=== PATIENT | male | born 1975 | race Two or more races ===

== ENCOUNTER 2018-06-28 23:32 | Emergency (ER) | payer OTHER ==
[~2018-06-28] VITALS: Ht 170.2 cm; Wt 62.0 kg
[2018-06-29] MEDS ORDERED: ACETAMINOPHEN 325 MG TABLET PO ONE (00:30)
[2018-06-29] MEDS ORDERED: IBUPROFEN 200 MG TABLET PO ONE (00:30)
[2018-06-29] MEDS ORDERED: IBUPROFEN 200 MG TABLET ONE (00:33)
[2018-06-29] MEDS ORDERED: ACETAMINOPHEN 325 MG TABLET ONE (00:33)
[2018-06-29 00:39] LABS: BASOPHILS # (AUTO) 0.01 x10^3/uL (0-0.1); BASOPHILS % (AUTO) 0 % (0-1); EOSINOPHILS # (AUTO) 0.03 x10^3/uL (0-0.4); EOSINOPHILS % (AUTO) 0 % (1-7); LYMPHOCYTES # (AUTO) 0.95 x10^3/uL (1-3.4); LYMPHOCYTES % (AUTO) 8 % (22-44); MD NO; MEAN CORPUSCULAR HEMOGLOBIN 29.1 pg (27.5-34.5); MEAN CORPUSCULAR HGB CONC 33.7 g/dL (33.2-36.2); MEAN CORPUSCULAR VOLUME 86.4 fL (81-97); MEAN PLATELET VOLUME 8.4 fL (7.4-10.4); MONOCYTES # (AUTO) 1.13 x10^3/uL (0.2-0.8); MONOCYTES % (AUTO) 10 % (2-9); NEUTROPHILS # (AUTO) 9.31 x10^3/uL (1.8-6.8); NEUTROPHILS % (AUTO) 82 % (42-75); PLATELET COUNT 334 x10^3/uL (130-400); RED BLOOD COUNT 4.62 x10^6/uL (4.38-5.82); RED CELL DISTRIBUTION WIDTH 13.6 % (9.4-14.8)
[2018-06-29 00:51] LABS: ALBUMIN 3.3 g/dL (3.4-5.0); ANION GAP 4 mmol/L (5-15); CALCIUM 7.9 mg/dL (8.5-10.1); CHLORIDE 103 mmol/L (98-107); CREATININE 0.99 mg/dL (0.7-1.3)
--- NOTE | 2018-06-29 01:12 | NUR ---
REPORT RECEIVED AND CARE ASSUMED. PT RESTING WITH NO S/S OF ACUTE DISTRESS. VSS. NSR ON MONITOR. FLU SWAB COLLECTED AND SENT. PT REMAINS IN CUSTODY WITH OFFICER AT BEDSIDE. AWAITING TEST RESULTS.
[2018-06-29 01:45] LABS: RAPID INFLUENZA A POSITIVE (Negative); RAPID INFLUENZA B Negative (Negative)
--- NOTE | 2018-06-29 02:10 | NUR ---
Pt given juice per request. Chart up for recheck--pt updated to POC. Call light in reach with officer at bedside.
--- NOTE | 2018-06-29 02:15 | NUR ---
ERP at bedside to recheck.
[2018-06-29 02:35] VITALS: BP 139/88
== END 2018-06-29 02:38 | disposition home or self-care (01) ==
LOC: ED 06-29 00:40
DX: J10.1 Influenza due to other identified influenza virus with other respiratory manifestations (principal); F17.200 Nicotine dependence, unspecified, uncomplicated
CPT/HCPCS: 36415; 71045; 80048; 82040; 84145; 85025; 87400; 93005; 99284

== ENCOUNTER 2019-06-22 21:59 | Emergency (ER) | payer SELFPAY ==
[~2019-06-22] VITALS: Ht 172.7 cm; Wt 78.4 kg
--- NOTE | 2019-06-22 22:12 | NUR ---
PROCESS IMPROVEMENT CONSULTANT: PT REFUSED TEMP, BP AND EKG.
--- NOTE | 2019-06-22 22:33 | NUR ---
PER MD PT REFUSING ALL INTERVENTIONS. FAMILY FEELS COMFORTABLE TAKING PT HOME. RETURN PRECAUTIONS DISCUSSED AND PT AND FAMILY STATE UNDERSTANDING. PT TBDC.
== END 2019-06-22 22:49 | disposition home or self-care (01) ==
LOC: ED 22:17
DX: R06.00 Dyspnea, unspecified (principal); F17.200 Nicotine dependence, unspecified, uncomplicated; Z72.9 Problem related to lifestyle, unspecified; Z91.14 Patient's other noncompliance with medication regimen
CPT/HCPCS: 99281

== ENCOUNTER 2019-06-23 00:21 | Emergency (ER) | payer OTHER ==
[~2019-06-23] VITALS: Ht 172.7 cm; Wt 79.5 kg
--- NOTE | 2019-06-23 01:17 | NUR ---
CALLED FOR ROOM, NO ANSWER
--- NOTE | 2019-06-23 01:36 | NUR ---
Pt presents to ed c/o paranoia s/t "smoked meth for 4 days straight." Pt here w/ brother and states pt does not have any psychiatric hx and "this isnt like him." Pt appears to be anxious and hesitant to answer questions. Pt neurologically intact otherwise. States last meth use "sometime tonight." Denies any si/hi. "i just want to go through the process and stop this." Monitoring applied. Brother at bedside. Awaiting md assessment.
[2019-06-23] MEDS ORDERED: LORazepam 1MG TABLET ONE (01:56)
[2019-06-23] MEDS ORDERED: HALOPERIDOL 5 MG/ML ONE (01:56)
[2019-06-23] MEDS ORDERED: LORazepam 1MG TABLET PO ONE (02:00)
[2019-06-23] MEDS ORDERED: HALOPERIDOL 5 MG/ML IM ONE (02:00)
[2019-06-23 02:08] LABS: BASOPHILS # (AUTO) 0.03 x10^3/uL (0-0.1); BASOPHILS % (AUTO) 0 % (0-1); EOSINOPHILS # (AUTO) 0.18 x10^3/uL (0-0.4); EOSINOPHILS % (AUTO) 3 % (1-7); LYMPHOCYTES # (AUTO) 1.78 x10^3/uL (1-3.4); LYMPHOCYTES % (AUTO) 26 % (22-44); MD NO; MEAN CORPUSCULAR HEMOGLOBIN 29.8 pg (27.5-34.5); MEAN CORPUSCULAR HGB CONC 33.9 g/dL (33.2-36.2); MEAN CORPUSCULAR VOLUME 87.9 fL (81-97); MEAN PLATELET VOLUME 8.8 fL (7.4-10.4); MONOCYTES # (AUTO) 0.51 x10^3/uL (0.2-0.8); MONOCYTES % (AUTO) 7 % (2-9); NEUTROPHILS # (AUTO) 4.49 x10^3/uL (1.8-6.8); NEUTROPHILS % (AUTO) 64 % (42-75); PLATELET COUNT 385 x10^3/uL (130-400); RED BLOOD COUNT 5.42 x10^6/uL (4.38-5.82)
[2019-06-23 02:18] LABS: ALBUMIN 4.3 g/dL (3.4-5.0); ANION GAP 7 mmol/L (5-15); CALCIUM 8.9 mg/dL (8.5-10.1); CHLORIDE 106 mmol/L (98-107); CREATININE 1.14 mg/dL (0.7-1.3)
[2019-06-23 02:21] LABS: SALICYLATE LEVEL < 1.7 mg/dL (2.8-20.0)
--- NOTE | 2019-06-23 03:32 | NUR ---
FRANTZ FROM [facility] CALLED TO THEY ARE 3-4 HOURS BEHIND
[2019-06-23 04:58] VITALS: BP 119/75
--- NOTE | 2019-06-23 05:43 | NUR ---
[facility] updated on pt and consult to take place at this time.
== END 2019-06-23 06:27 | disposition home or self-care (01) ==
LOC: ED 01:42
DX: F15.151 Other stimulant abuse with stimulant-induced psychotic disorder with hallucinations (principal); F15.122 Other stimulant abuse with intoxication with perceptual disturbance; F22 Delusional disorders
CPT/HCPCS: 36415; 80048; 80307; 82040; 85025; 96372; 99283; J1630